=== PATIENT | male | born 1945 | race Hispanic/Latino ===

== ENCOUNTER 2019-12-26 14:25 | Outpatient (CLI) | payer MEDICARE ==
--- NOTE | 2019-12-26 14:46 | RAD ---
EXAM: Chest PA and lateral: HISTORY: Single breath. COMPARISON: 04/23/2015 FINDINGS: Stable sternotomy wires. Heart: Normal cardiac silhouette Aorta: Atherosclerosis Pulmonary vessels: Normal Costophrenic angles: Costophrenic angles are clear. Lungs: No consolidation or masses. Chronic lung parenchymal changes. Pneumothorax: No pneumothorax Osseous structures: No osseous abnormalities IMPRESSION: 1. Atherosclerosis. 2. Chronic lung parenchymal changes. 3. No acute cardiopulmonary process
--- NOTE | 2019-12-26 14:49 | RAD ---
Exam: 2 views lumbar spine HISTORY: Lumbago with left-sided sciatica. FINDINGS: 5 lumbar type vertebra. Severe degenerative change at the L2-L3 level. There is loss of dis c space height, osteophyte formation sclerosis. No fracture. Mild leftward curvature of the lower lumbar spine. Visualized sacrum and bony pelvis are intact. IMPRESSION: Severe degenerative change at the L2-L3 level.
== END 2019-12-26 14:26 | disposition home or self-care (01) ==
LOC: BICRAD 14:25
PROVIDERS: ATTEND Family Medicine
DX: M54.42 Lumbago with sciatica, left side (principal); R06.02 Shortness of breath; M47.816 Spondylosis without myelopathy or radiculopathy, lumbar region; I70.90 Unspecified atherosclerosis
CPT/HCPCS: 36415; 71046; 72100; 83540; 83550; 83880

== ENCOUNTER 2022-03-05 13:27 | Outpatient (CLI) | payer MEDICARE | END 2022-03-05 13:28 | disposition home or self-care (01) | LOC: ULT 13:27 | PROVIDERS: ATTEND Family Medicine | DX: M79.89 Other specified soft tissue disorders (principal); R22.42 Localized swelling, mass and lump, left lower limb ==

== ENCOUNTER 2022-12-18 09:58 | Outpatient (CLI) | payer MEDICARE | END 2022-12-18 09:59 | disposition home or self-care (01) | LOC: RAD 09:58 | PROVIDERS: ATTEND Internal Medicine | DX: M54.16 Radiculopathy, lumbar region (principal); M16.11 Unilateral primary osteoarthritis, right hip; M41.86 Other forms of scoliosis, lumbar region; R60.0 Localized edema | CPT/HCPCS: 72100; 72170 ==

== ENCOUNTER 2023-01-22 12:32 | Outpatient (CLI) | payer MEDICARE | END 2023-01-22 12:33 | disposition home or self-care (01) | LOC: RAD 12:32 | PROVIDERS: ATTEND Family Medicine | DX: M25.531 Pain in right wrist (principal) ==

== ENCOUNTER 2023-06-03 10:18 | Day surgery (SDC) | payer MEDICARE ==
[2023-06-03] MEDS ORDERED: Furosemide 20 MG/2 ML VIAL SLOW IVP SCH (11:30)
[2023-06-03] MEDS ORDERED: Furosemide 20 MG/2 ML VIAL ONE (16:37)
[2023-06-03 17:34] VITALS: TEMP 98.6
[2023-06-03 19:13] VITALS: BP 130/70
== END 2023-06-03 19:20 | disposition home or self-care (01) ==
LOC: ONC/OP 10:18
PROVIDERS: ATTEND Family Medicine
DX: D64.9 Anemia, unspecified (principal); I25.10 Atherosclerotic heart disease of native coronary artery without angina pectoris; E78.5 Hyperlipidemia, unspecified; I10 Essential (primary) hypertension; G47.33 Obstructive sleep apnea (adult) (pediatric); M17.12 Unilateral primary osteoarthritis, left knee; K21.9 Gastro-esophageal reflux disease without esophagitis; J45.909 Unspecified asthma, uncomplicated; M10.9 Gout, unspecified; G43.909 Migraine, unspecified, not intractable, without status migrainosus; Z98.890 Other specified postprocedural states; F17.210 Nicotine dependence, cigarettes, uncomplicated; Z96.652 Presence of left artificial knee joint; Z79.899 Other long term (current) drug therapy
CPT/HCPCS: 36430; 86850; 86870; 86900; 86901; 86902; 86905; 86920; 86922; P9016; J1940

== ENCOUNTER 2024-03-06 11:30 | Outpatient (CLI) | payer OTHER | END 2024-03-06 11:31 | disposition home or self-care (01) | LOC: BICRAD 11:30 | PROVIDERS: ATTEND Nurse Practitioner Family | DX: M25.572 Pain in left ankle and joints of left foot (principal); M79.89 Other specified soft tissue disorders ==